=== PATIENT | male | born 1970 | race American Indian/Alaskan Native ===

== ENCOUNTER 2017-05-17 17:14 | Emergency (ER) | payer BC ==
[2017-05-17 17:14] VITALS: BMI 39.1
[2017-05-17 17:23] VITALS: BP 156/105; PULSE 78; TEMP 98.5
--- NOTE | 2017-05-17 17:53 | ED PDOC ---
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 Denies any symptoms related to it; only noticed it because his ng noticed that he had a small bump on his cheek. Went to a senior software development engineer who decided it "wasn't cancer" but did not do any excision/drainage/biopsy. He denies any facial droop, vision changes, eyelid drag, trouble swallowing, trouble breathing, and is barely noticeable cosmetically. Denies fevers/chills, headache, Chest pain, shortness of breath, abdominal pain, Nausea, vomiting, diarrhea, dysuria/freq/urg, or lower extremity pain/swelling. Past medical history: diabetes, hypertension, hyperlipidemia FamHx: grandmother with "intestinal" cancer, hypertension, hyperlipidemia, diabetes Allergies: Denies Meds: please refer to [facility] Surgeries: adenoid removal last year Social: social smoker in the past, denies daily EtOH (social drinker) denies other drugs (Delroy Jackson) Past Medical History - Provider Review Nursing Documentation Reviewed: Yes - Travel History Have you recently traveled outside [place] w/in the past 3 mons?: No - Past History Past History: Non-Contributing - Infectious Disease Hx of Infectious Diseases: None - Tetanus Immunization Tetanus Immunization: Unknown - Cardiac Hx Cardiac Disorders: Yes Hx Hypertension: Yes - Pulmonary Hx Respiratory Disorders: No - Neurological Hx Neurological Disorder: No - HEENT Hx HEENT Disorder: No - Renal Hx Renal Disorder: No - Endocrine/Metabolic Hx Endocrine Disorders: Yes Hx Diabetes Mellitus Type 2: Yes - Hematological/Oncological Hx Blood Disorders: No - Integumentary Hx Dermatological Disorder: No - Musculoskeletal/Rheumatological Hx Musculoskeletal Disorders: No - Gastrointestinal Hx Gastrointestinal Disorders: No - Genitourinary/Gynecological Hx Genitourinary Disorders: No - Psychiatric Hx Psychophysiologic Disorder: No Hx Substance Use: No - Past Surgical History Past Surgical History: No Previous - Anesthesia Hx Anesthesia: No Hx Anesthesia Reactions: No Hx Malignant Hyperthermia: No - Suicidal Assessment Feels Threatened In Home Enviroment: No <Delroy Jackson - Last Filed: 05/17/17 18:12> Family/Social History - Physician Review Nursing Documentation Reviewed: Yes Family/Social History: Diabetes, Hypertension, Neoplasm/Cancer Smoking Status: Never Smoked Hx Alcohol Use: No Hx Substance Use: No Hx Substance Use Treatment: No <Delroy Jackson - Last Filed: 05/17/17 18:12> Allergies/Home Meds <Delroy Jackson - Last Filed: 05/17/17 18:12> <Carlos Cotto - Last Filed: 05/17/17 19:13> Allergies/Adverse Reactions: Allergies No Known Allergies Allergy (Verified 05/17/17 17:22) Home Medications: Home Meds Medication Instructions Recorded Confirmed Bystolic 0 mg PO DAILY 02/09/16 05/17/17 MetFORMIN [glucoPHAGE] 0 mg PO BID 05/17/17 05/17/17 Valsartan [Diovan] 0 mg PO DAILY 05/17/17 05/17/17 Review of Systems - Physician Review All systems were reviewed & negative as marked: Yes - Review of Systems Constitutional: absent: Fatigue, Weight Change Eyes: absent: Vision Changes, Photophobia ENT: absent: Hearing Changes, Tinnitus Respiratory: absent: SOB, Cough, Sputum, Wheezing Cardiovascular: absent: Chest Pain, Palpitations Gastrointestinal: absent: Abdominal Pain, Stool Changes Genitourinary Male: absent: Dysuria, Frequency, Hematuria Musculoskeletal: absent: Arthralgias, Back Pain Skin: absent: Rash, Pruritis, Skin Lesions Neurological: absent: Headache, Dizziness Endocrine: absent: Diaphoresis Hemo/Lymphatic: absent: Adenopathy Psychiatric: absent: Anxiety, Depression <Delroy Jackson - Last Filed: 05/17/17 18:12> Physical Exam Vital Signs Reviewed: Yes Temperature: Afebrile Blood Pressure: Hypotensive Pulse: Regular Respiratory Rate: Normal Appearance: Positive for: Well-Appearing, Non-Toxic, Comfortable Pain Distress: None Mental Status: Positive for: Alert and Oriented X 3 - Systems Exam Head: Present: Atraumatic, Normocephalic. No: Tenderness, Contusion (there is a small 2cm by 2cm palpable mass in in front of the left zygomatic bone, non tender to palpation, easily movable) Pupils: Present: PERRL Extroacular Muscles: Present: EOMI Conjunctiva: Present: Normal Mouth: Present: Moist Mucous Membranes. No: Dry, Drooling Pharnyx: Present: Normal Neck: Present: Normal Range of Motion. No: Meningeal Signs Respiratory/Chest: Present: Clear to Auscultation, Good Air Exchange. No: Respiratory Distress Cardiovascular: Present: Regular Rate and Rhythm, Normal S1, S2. No: Murmurs Abdomen: Present: Normal Bowel Sounds. No: Tenderness, Distention Back: Present: Normal Inspection. No: CVA Tenderness Upper Extremity: Present: Normal Inspection. No: Cyanosis, Edema Lower Extremity: Present: Normal Inspection. No: Edema, CALF TENDERNESS Neurological: Present: GCS=15, CN II-XII Intact, Motor Func Grossly Intact, Normal Sensory Function, Normal Cerebellar Funct, Norm Deep Tendon Reflexes, Gait Normal, Memory Normal, Normal 2Pt Descrimination Skin: Present: Warm Psychiatric: Present: Alert, Normal Insight <Delroy Jackson - Last Filed: 05/17/17 18:12> Vital Signs Temp Pulse Resp BP Pulse Ox 05/17/17 18:33 17 99 05/17/17 17:18 98.5 F 78 16 156/105 H 100 Medical Decision Making <Delroy Jackson - Last Filed: 05/17/17 18:12> <Carlos Cotto - Last Filed: 05/17/17 19:13> ED Course and Treatment: 05/17/17 17:57 DDx; Lipoma 05/17/17 18:12 patient will be given referall for plastics and gen surgeon Dr. Kirkland and Dr. Barrera unlikely an infectious process however patient does not want to stay for US to be done patient understands all risks and benefits patient is stable for dc as per dr cotto (Delroy Jackson) 05/17/17 19:12 Seen and examined with resident - came up with plan together - exam c/w likely lipoma - patient will be ok for d/c for removal of the soft tissue lesion by plastics - referred to plastics - ok for d/c. (Carlos Cotto) - PA / LINE SERVICE TECHNICIAN / Resident Statement NINA has reviewed & agrees with the documentation as recorded. NINA has examined the patient and agrees with the treatment plan. <Carlos Cotto - Last Filed: 05/17/17 19:13> Disposition/Present on Arrival - Present on Arrival Any Indicators Present on Arrival: No History of DVT/PE: No History of Uncontrolled Diabetes: No Urinary Catheter: No History of Decub. Ulcer: No History Surgical Site Infection Following: None - Disposition Have Diagnosis and Disposition been Completed?: Yes Disposition Time: 18:13 Patient Plan: Discharge <Delroy Jackson - Last Filed: 05/17/17 18:12> <Carlos Cotto - Last Filed: 05/17/17 19:13> - Disposition Diagnosis: Mass Disposition: HOME/ ROUTINE Condition: FAIR Additional Instructions: Please make sure to make appointments with the two Dr's listed below It was a pleasure taking care of you Please feel better. Referrals: Murtaza Kirkland MD [Staff Provider] - Follow up with primary Lashell Barrera MD [Non-Staff] - Follow up with primary Forms: [employer] (Urdu)
[2017-05-17 18:33] VITALS: RESP 17; O2SAT 99
== END 2017-05-17 18:33 | disposition home or self-care (01) ==
LOC: ED 17:14
DX: R22.0 Localized swelling, mass and lump, head (principal); E11.9 Type 2 diabetes mellitus without complications; E78.5 Hyperlipidemia, unspecified; I10 Essential (primary) hypertension; Z82.49 Family history of ischemic heart disease and other diseases of the circulatory system; Z79.84 Long term (current) use of oral hypoglycemic drugs

== ENCOUNTER 2017-10-14 03:05 | Emergency (ER) | payer BC ==
[2017-10-14 03:05] VITALS: BMI 39.1
[2017-10-14 03:20] VITALS: BP 161/60; PULSE 98; RESP 17; TEMP 98.3; O2SAT 100
--- NOTE | 2017-10-14 03:30 | ED PDOC ---
Arrival/HPI - General Chief Complaint: Male Genitourinary Time Seen by Provider: 10/14/17 03:25 - History of Present Illness Narrative History of Present Illness (Text): 47 y/o M c PMHx HTN p/w penile lesion x 2 days. Patient states he masturbates often and did masturbate shortly prior to noticing this lesion. He states he has not had sexual intercourse for months and did not have any symptoms in the interim. Denies fever, dysuria, penile discharge, or pain. He states it does feel like a friction irritation but wanted to check to make sure it was not indicative of an STD. Past Medical History - Past History Past History: Non-Contributing - Infectious Disease Hx of Infectious Diseases: None - Tetanus Immunization Tetanus Immunization: Unknown - Cardiac Hx Cardiac Disorders: Yes Hx Hypertension: Yes - Pulmonary Hx Respiratory Disorders: No - Neurological Hx Neurological Disorder: No - HEENT Hx HEENT Disorder: No - Renal Hx Renal Disorder: No - Endocrine/Metabolic Hx Endocrine Disorders: Yes Hx Diabetes Mellitus Type 2: Yes - Hematological/Oncological Hx Blood Disorders: No - Integumentary Hx Dermatological Disorder: No - Musculoskeletal/Rheumatological Hx Musculoskeletal Disorders: No - Gastrointestinal Hx Gastrointestinal Disorders: No - Genitourinary/Gynecological Hx Genitourinary Disorders: No - Psychiatric Hx Psychophysiologic Disorder: No Hx Substance Use: No - Past Surgical History Past Surgical History: No Previous - Anesthesia Hx Anesthesia: No Hx Anesthesia Reactions: No Hx Malignant Hyperthermia: No - Suicidal Assessment Feels Threatened In Home Enviroment: No Family/Social History Family/Social History: No Known Family HX Smoking Status: Never Smoked Hx Alcohol Use: No Hx Substance Use: No Hx Substance Use Treatment: No Allergies/Home Meds Allergies/Adverse Reactions: Allergies No Known Allergies Allergy (Verified 05/17/17 17:22) Home Medications: Home Meds Medication Instructions Recorded Confirmed Bystolic 0 mg PO DAILY 02/09/16 10/14/17 MetFORMIN [glucoPHAGE] 0 mg PO BID 05/17/17 10/14/17 Valsartan [Diovan] 0 mg PO DAILY 05/17/17 10/14/17 Review of Systems - Physician Review All systems were reviewed & negative as marked: Yes - Review of Systems Constitutional: absent: Fevers Gastrointestinal: absent: Vomiting Physical Exam - Physical Exam Narrative Physical Exam (Text): Gen: NAD Head: NC Eyes: No scleral icterus ENT: MMM : Penis without swelling or discharge. Overlying meatus is abrasion. Patient asked to hold penis as if masturbating and contact is present between hand and abrasion. No scrotal swelling or tenderness. Vital Signs Temp Pulse Resp BP Pulse Ox 10/14/17 03:20 98.3 F 98 H 17 161/60 H 100 Medical Decision Making ED Course and Treatment: Lesion appears to be friction irritation, no appearance consistent with STD lesion. Advised vaseline, no masturbation until healed, get re-evaluated if fever, dysuria, discharge, increasing or spreading erythema, vesicles, swelling , etc. Disposition/Present on Arrival - Present on Arrival Any Indicators Present on Arrival: No History of DVT/PE: No History of Uncontrolled Diabetes: No Urinary Catheter: No History of Decub. Ulcer: No History Surgical Site Infection Following: None - Disposition Have Diagnosis and Disposition been Completed?: Yes Diagnosis: Penile abrasion Disposition: HOME/ ROUTINE Disposition Time: 03:32 Patient Plan: Discharge Condition: STABLE Discharge Instructions (ExitCare): Skin Abrasions
== END 2017-10-14 03:48 | disposition home or self-care (01) ==
LOC: ED 03:05
DX: S30.812A Abrasion of penis, initial encounter (principal); X58.XXXA Exposure to other specified factors, initial encounter; E11.9 Type 2 diabetes mellitus without complications; I10 Essential (primary) hypertension

== ENCOUNTER 2018-07-27 09:05 | Emergency (ER) | payer BC ==
[2018-07-27 09:06] VITALS: BMI 39.1
--- NOTE | 2018-07-27 10:25 | ED PDOC ---
Arrival/HPI - General Chief Complaint: Abdominal Pain Time Seen by Provider: 07/27/18 09:36 Historian: Patient - History of Present Illness Narrative History of Present Illness (Text): 07/27/18 10:22 48 year old male, with past medical history of hypertension and pre-diabetes, presents to emergency department complaining of non-radiating right lower abdominal discomfort. Patient states he ate a meal prior without difficulty. P atient denies any urinary symptoms, fevers, headache, dizziness, chest pain, shortness of breath, cough, nausea, vomiting, diarrhea, back pain, neck pain, or any other complaints. PMD: Time/Duration: < week Symptom Onset: Gradual Symptom Course: Unchanged Activities at Onset: Light Context: Home Past Medical History - Provider Review Nursing Documentation Reviewed: Yes - Past History Past History: Non-Contributing - Infectious Disease Hx of Infectious Diseases: None - Tetanus Immunization Tetanus Immunization: Unknown - Cardiac Hx Hypertension: Yes - Pulmonary Hx Sleep Apnea: Yes - Neurological Hx Neurological Disorder: No - HEENT Hx HEENT Disorder: No - Renal Hx Renal Disorder: No - Endocrine/Metabolic Hx Endocrine Disorders: Yes Hx Diabetes Mellitus Type 2: Yes - Hematological/Oncological Hx Blood Disorders: No - Integumentary Hx Dermatological Disorder: No - Musculoskeletal/Rheumatological Hx Musculoskeletal Disorders: No Hx Gout: Yes (controlled with diet) - Gastrointestinal Hx Gastrointestinal Disorders: No - Genitourinary/Gynecological Hx Genitourinary Disorders: No - Psychiatric Hx Psychophysiologic Disorder: No Hx Substance Use: No - Past Surgical History Past Surgical History: No Previous - Anesthesia Hx Anesthesia: No Hx Anesthesia Reactions: No Hx Malignant Hyperthermia: No - Suicidal Assessment Feels Threatened In Home Enviroment: No Family/Social History - Physician Review Nursing Documentation Reviewed: Yes Family/Social History: Unknown Family HX Smoking Status: Never Smoked Hx Alcohol Use: No Hx Substance Use: No Hx Substance Use Treatment: No Allergies/Home Meds Allergies/Adverse Reactions: Allergies No Known Allergies Allergy (Verified 05/17/17 17:22) Home Medications: Home Meds Medication Instructions Recorded Confirmed Bystolic 0 mg PO DAILY 02/09/16 07/27/18 MetFORMIN [glucoPHAGE] 0 mg PO BID 05/17/17 07/27/18 Valsartan [Diovan] 0 mg PO DAILY 05/17/17 07/27/18 Review of Systems - Physician Review All systems were reviewed & negative as marked: Yes - Review of Systems Respiratory: absent: SOB, Cough, Wheezing Cardiovascular: absent: Chest Pain Gastrointestinal: Other (right lower abdominal discomfort ). absent: Diarrhea, Nausea, Vomiting Genitourinary Male: absent: Frequency, Hematuria, Urinary Output Changes Musculoskeletal: absent: Back Pain, Neck Pain Skin: absent: Rash Neurological: absent: Headache, Dizziness Physical Exam Vital Signs Reviewed: Yes Temperature: Afebrile Blood Pressure: Normal Pulse: Regular Respiratory Rate: Normal Appearance: Positive for: Well-Appearing, Non-Toxic, Comfortable Pain Distress: None Mental Status: Positive for: Alert and Oriented X 3 - Systems Exam Head: Present: Atraumatic, Normocephalic Pupils: Present: PERRL Extroacular Muscles: Present: EOMI Conjunctiva: Present: Normal Mouth: Present: Moist Mucous Membranes Neck: Present: Normal Range of Motion Respiratory/Chest: Present: Clear to Auscultation, Good Air Exchange. No: Respiratory Distress, Accessory Muscle Use Cardiovascular: Present: Regular Rate and Rhythm, Normal S1, S2. No: Murmurs Abdomen: Present: Other (slight discomfort to palpation at right groin). No: Tenderness, Distention, Peritoneal Signs Back: Present: Normal Inspection Upper Extremity: Present: Normal Inspection. No: Cyanosis, Edema Lower Extremity: Present: Normal Inspection. No: Edema Neurological: Present: GCS=15, CN II-XII Intact, Speech Normal Skin: Present: Warm, Dry, Normal Color. No: Rashes Psychiatric: Present: Alert, Oriented x 3, Normal Insight, Normal Concentration Medical Decision Making ED Course and Treatment: 07/27/18 10:27 Impression: 48 year old male presents to emergency department complaining of right lower abdominal pain. Differential Diagnosis included but are not limited to: -- hernia -- appendicitis Plan: -- CT Abdomen & Pelvis -- Labs -- Reassess and disposition Prior Visits: Notes and results from previous visits were reviewed. Progress Notes: - RAD Interpretation Narrative RAD Interpretations (Text): 07/27/18 14:47 CT Abdomen/Pelvis reviewed by radiologist: IMPRESSION: Unremarkable contrast enhanced CT of the abdomen and pelvis. Radiology Orders: 07/27/18 10:12 ABDOMEN & PELVIS [ABD & PELVIS IV CONTRAST ONLY] [CT] Stat Bank Representative: Radiologist - Scribe Statement The provider has reviewed the documentation as recorded by the Scribe Emily Flower All medical record entries made by the Scribe were at my direction and personally dictated by me. I have reviewed the chart and agree that the record accurately reflects my personal performance of the history, physical exam, medical decision making, and the department course for this patient. I have also personally directed, reviewed, and agree with the discharge instructions and disposition. Disposition/Present on Arrival - Present on Arrival Any Indicators Present on Arrival: No History of DVT/PE: No History of Uncontrolled Diabetes: No Urinary Catheter: No History of Decub. Ulcer: No History Surgical Site Infection Following: None - Disposition Have Diagnosis and Disposition been Completed?: Yes Diagnosis: Groin discomfort Disposition: HOME/ ROUTINE Disposition Time: 14:16 Patient Plan: Discharge Condition: STABLE Discharge Instructions (ExitCare): Acute Abdomen (Belly Pain), Adult (DC), Nausea and Vomiting, Adult (DC) Print Language: HUNGARIAN Additional Instructions: All medical record entries made by the Scribe were at my direction and personally dictated by me. I have reviewed the chart and agree that the record accurately reflects my personal performance of the history, physical exam, medical decision making, and the department course for this patient. I have also personally directed, reviewed, and agree with the discharge instructions and disposition. Please follow up with your PCP in 3-5 days Prescriptions: Cyclobenzaprine [Cyclobenzaprine HCl] 10 mg PO Q8H #10 tab Ibuprofen [Motrin] 600 mg PO Q6H #12 tab Referrals: Helder Alvarez MD [Staff Provider] - Follow up with primary Forms: [employer] (Citizen [place]), WORK NOTE
[2018-07-27 10:47] VITALS: TEMP 98.9; O2SAT 100
[2018-07-27 10:55] LABS: BASO # 0.04 K/mm3 (0.0-2.0); BASO % 0.8 % (0.0-3.0); EOS # 0.2 (0.0-0.7); GRAN # 1.97 (1.4-6.5); GRAN % 38.9 % (50.0-68.0); HEMOGLOBIN 13.5 g/dL (14.0-18.0); LYMPH # 2.6 (1.2-3.4); LYMPH % 51.6 % (22.0-35.0); MEAN CELL VOLUME 84.4 fl (80.0-105.0); MEAN CORPUSCULAR HEMOGLOBIN 28.1 pg (25.0-35.0); MEAN CORPUSCULAR HGB CONC 33.3 g/dl (31.0-37.0); MEAN PLATELET VOLUME 8.6 fl (7.0-11.0); MONO # 0.3 (0.1-0.6); MONO % 5.7 % (1.0-6.0); RBC 4.8 10^6/uL (3.5-6.1); RED CELL DISTRIBUTION WIDTH 13.4 % (11.5-14.5); WHITE BLOOD COUNT 5.1 10^3/uL (4.5-11.0)
[2018-07-27 11:17] LABS: ALB/GLOB RATIO 1.1 (1.1-1.8); ALBUMIN 4.5 g/dL (3.0-4.8); ALT/SGPT 26 U/L (7-56); AST/SGOT 22 U/L (17-59); BLOOD UREA NITROGEN 13 mg/dL (7-21); CALCIUM 9.4 mg/dL (8.4-10.5); GFR NON-AFRICAN AMERICAN > 60
[2018-07-27 12:58] VITALS: PULSE 70; RESP 20
--- NOTE | 2018-07-27 13:25 | CT ---
Date of service: 07/27/2018 PROCEDURE: CT Abdomen and Pelvis with contrast HISTORY: groin pain COMPARISON: None. TECHNIQUE: Contrast dose: 150 cc of Omni 350 Radiation dose: Total exam DLP = 1108.1 mGy-cm. This CT exam was performed using one or more of the following dose reduction techniques: Automated exposure control, adjustment of the mA and/or kV according to patient size, and/or use of iterative reconstruction technique. FINDINGS: LOWER THORAX: Unremarkable. LIVER: Unremarkable. No gross lesion or ductal dilatation. GALLBLADDER AND BILE DUCTS: Unremarkable. PANCREAS: Unremarkable. No gross lesion or ductal dilatation. SPLEEN: Unremarkable. ADRENALS: Unremarkable. No mass. KIDNEYS AND URETERS: Unremarkable. No hydronephrosis. No solid mass. There is a 2.5 cm cystic lesion in the upper pole of the left kidney measuring 37 Hounsfield units in density. This most likely represents a hemorrhagic cyst. Follow-up is recommended. VASCULATURE: Unremarkable. No aortic aneurysm. No aortic atherosclerotic calcification or mural plaque present. BOWEL: Unremarkable. No obstruction. No gross mural thickening. APPENDIX: Normal appendix. PERITONEUM: Unremarkable. No free fluid. No free air. LYMPH NODES: Unremarkable. No enlarged lymph nodes. BLADDER: Unremarkable. REPRODUCTIVE: Unremarkable. BONES: No acute fracture. OTHER FINDINGS: None. IMPRESSION: Unremarkable contrast enhanced CT of the abdomen and pelvis.
[2018-07-27 15:35] VITALS: BP 132/84
== END 2018-07-27 14:45 | disposition home or self-care (01) ==
LOC: ED 09:05
DX: R10.31 Right lower quadrant pain (principal); E11.9 Type 2 diabetes mellitus without complications; I10 Essential (primary) hypertension
CPT/HCPCS: 74177; 80053; 85025; 99284; Q9967